=== PATIENT | female | born 1980 | race Caucasian/White ===

== ENCOUNTER 2020-10-30 09:06 | Outpatient (CLI) | payer BC | END 2020-10-30 09:07 | disposition home or self-care (01) | LOC: CSHCT 09:06 | PROVIDERS: ATTEND Internal Medicine Hematology & Oncology | DX: C56.2 Malignant neoplasm of left ovary (principal) | CPT/HCPCS: 71260; 74177 ==

== ENCOUNTER 2023-10-27 08:03 | Outpatient (CLI) | payer BC ==
[2023-10-27] MEDS ORDERED: Iopamidol 300 61% 100 ML VIAL FS ONE (10:53)
== END 2023-10-27 08:04 | disposition home or self-care (01) ==
LOC: CSHCT 08:03
PROVIDERS: ATTEND Internal Medicine Hematology & Oncology
DX: C56.2 Malignant neoplasm of left ovary (principal); R19.09 Other intra-abdominal and pelvic swelling, mass and lump; K66.8 Other specified disorders of peritoneum; M62.89 Other specified disorders of muscle; R18.8 Other ascites
CPT/HCPCS: 71260; 74177; Q9967

== ENCOUNTER 2024-01-04 08:11 | Outpatient (CLI) | payer BC | END 2024-01-04 08:12 | disposition home or self-care (01) | LOC: CSHCT 08:11 | PROVIDERS: ATTEND Internal Medicine Hematology & Oncology | DX: Z01.810 Encounter for preprocedural cardiovascular examination (principal); C56.2 Malignant neoplasm of left ovary; M79.81 Nontraumatic hematoma of soft tissue; C79.89 Secondary malignant neoplasm of other specified sites | CPT/HCPCS: 71260; 74177; 93306 ==

== ENCOUNTER 2024-04-24 08:01 | Outpatient (CLI) | payer BC ==
[2024-04-24] MEDS ORDERED: Iopamidol 300 61% 100 ML VIAL FS ONE (10:53)
== END 2024-04-24 08:02 | disposition home or self-care (01) ==
LOC: CSHCT 08:01
PROVIDERS: ATTEND Internal Medicine Hematology & Oncology
DX: C56.2 Malignant neoplasm of left ovary (principal)
CPT/HCPCS: 71260; 74177

== ENCOUNTER 2024-06-13 09:27 | Outpatient (CLI) | payer BC | END 2024-06-13 09:28 | disposition home or self-care (01) | LOC: CSHCT 09:27 | PROVIDERS: ATTEND Internal Medicine Hematology & Oncology | DX: C56.2 Malignant neoplasm of left ovary (principal); C78.6 Secondary malignant neoplasm of retroperitoneum and peritoneum | CPT/HCPCS: 71260; 74177 ==

== ENCOUNTER 2025-01-15 09:33 | Outpatient (CLI) | payer BC ==
[2025-01-15] MEDS ORDERED: Iopamidol 300 61% 100 ML VIAL FS ONE (10:35)
== END 2025-01-15 09:34 | disposition home or self-care (01) ==
LOC: CSHCT 09:33
PROVIDERS: ATTEND Internal Medicine Hematology & Oncology
DX: C56.2 Malignant neoplasm of left ovary (principal); C78.6 Secondary malignant neoplasm of retroperitoneum and peritoneum
CPT/HCPCS: 71260; 74177

== ENCOUNTER 2025-05-08 08:00 | Outpatient (CLI) | payer BC ==
[2025-05-08] MEDS ORDERED: Iopamidol 300 61% 100 ML VIAL FS ONE (12:11)
== END 2025-05-08 08:01 | disposition home or self-care (01) ==
LOC: CSHCT 08:00
PROVIDERS: ATTEND Internal Medicine Hematology & Oncology
DX: C56.2 Malignant neoplasm of left ovary (principal)
CPT/HCPCS: 71260; 74177; Q9967